=== PATIENT | female | born 2000 | race Caucasian/White ===

== ENCOUNTER 2018-12-22 21:47 | Emergency (ER) | payer MEDICAID ==
[~2018-12-22] VITALS: Ht 149.9 cm; Wt 52.2 kg
[2018-12-22 22:19] VITALS: BP_SYST 109
--- NOTE | 2018-12-22 22:19 | NUR ---
Pt wheeled to bed 8 for evaluation
--- NOTE | 2018-12-22 22:20 | NUR ---
Pt c/o anxiety and shaking s/p smoking marijuana from a [employer] 1 hour [facility]. Pt placed on quality assurance monitor body, HR [address], denies c/o C/P or SOB.
--- NOTE | 2018-12-22 22:35 | NUR ---
Dr. Mccann at bedside.
[2018-12-22] MEDS ORDERED: LORazepam 2 MG/ML VIAL (FOR ER USE) IM ONE (22:45)
[2018-12-22 23:41] VITALS: BP_SYST 116
--- NOTE | 2018-12-22 23:41 | NUR ---
Patient given written and verbal discharge instructions and verbalizes understanding. ER MD discussed with patient the results and treatment provided. Patient in stable condition. ID arm band removed. Rx of Xanax given. Patient educated on pain management and to follow up with PMD. Pain Scale 0. Opportunity for questions provided and answered. Medication side effect fact sheet provided.
== END 2018-12-22 23:41 | disposition home or self-care (01) ==
LOC: SED 21:47
DX: F41.0 Panic disorder [episodic paroxysmal anxiety] (principal); R03.0 Elevated blood-pressure reading, without diagnosis of hypertension
CPT/HCPCS: 81025; 96372; 99284; J2060; 99283